=== PATIENT | female | born 1985 | race Asian ===

== ENCOUNTER 2019-03-16 09:27 | Emergency (ER) | payer OTHER ==
[~2019-03-16] VITALS: Ht 149.9 cm; Wt 45.0 kg
[2019-03-16 09:29] VITALS: BP 141/94
[2019-03-16] MEDS ORDERED: FAMOTIDINE 20 MG TABLET PO ONE (11:00)
[2019-03-16] MEDS ORDERED: DiphenhydrAMINE HCL 25 MG CAPSULE PO ONE (11:00)
[2019-03-16] MEDS ORDERED: DEXAMETHASONE 4 MG TABLET PO ONE (11:00)
[2019-03-16] MEDS ORDERED: PRAMOXINE HCL/BENZYL ALCOHOL 1% 35 GM GEL TP ONE (11:00)
== END 2019-03-16 12:03 | disposition home or self-care (01) ==
LOC: EMS 09:31
DX: L50.9 Urticaria, unspecified (principal); F17.210 Nicotine dependence, cigarettes, uncomplicated
CPT/HCPCS: 81025; 99284; 99406; J8540